=== PATIENT | female | born 1955 | race Caucasian/White ===

== ENCOUNTER 2017-05-20 16:46 | Emergency (ER) | payer OTHER ==
--- NOTE | 2017-05-20 18:17 | EDPHY ---
H & P Time Seen by Provider: 05/20/17 17:44 HPI/ROS: CHIEF COMPLAINT: Acute left medial knee pain from ski HISTORY OF PRESENT ILLNESS: 61-year-old female arrives via private vehicle complaining of acute left knee pain after she was skiing at [place] today, fell , the tail of her ski impacted her left medial knee and she felt a "tear". She is unable to bear weight. Has reproducible pain with movement, palpation. No fall from a significant height. PHYSICAL EXAM (Prior to examination, patient consented to physical exam, hands were washed and my usual and customary physical exam procedures followed) 1) GENERAL: Well-developed, well-nourished, alert and oriented. Appears to be in no acute distress. 2) HEAD: Normocephalic 3) HEENT: Pupils equal, round, reactive to light bilaterally. 4) LUNGS: Breathing comfortably. 5) MUSCULOSKELETAL: Exam of the left knee shows ecchymosis left medial knee with associated tenderness. Reproducible pain with range of motion. No gross instability . Compartments are soft. 6) SKIN: Intact 7) VASCULAR: DP,PT pulses and cap refill present and brisk distally DIFFERENTIAL DIAGNOSIS: in no particular order including but not limited to fracture, sprain, compartment syndrome, septic arthritis, DVT Procedure: Crutches indications for crutch use discussed with patient. Patient fitted for crutches by ER staff. Observed ambulating with crutches. I think the patient has the capacity to safely use crutches. Usual and customary crutch walking precautions provided Procedure: Splint A knee immobilizer splint was applied by ER radio frequency technician. After application of the splint I returned and re-examined the patient. The splint was adequately immobilizing the joint and distal to the splint the patient's circulation and sensation were intact. Patient shows no signs of compartment syndrome. Was given orthopedic precautions. Smoking Status: Never smoked Constitutional: Initial Vital Signs Temperature (C) 36.8 C 05/20/17 16:51 Heart Rate 67 05/20/17 16:51 Respiratory Rate 20 05/20/17 16:51 Blood Pressure 143/83 H 05/20/17 16:51 O2 Sat (%) 95 05/20/17 16:51 O2 Delivery Mode Room Air Allergies/Adverse Reactions: No Known Allergies Allergy (Verified 05/20/17 16:50) Home Medications: Medication Instructions Recorded DIAZEPAM 05/20/17 Martha 5/325 (*) 05/20/17 morphINE IR 05/20/17 MDM/Departure - MDM Imaging Results: Imaging Impressions Knee X-Ray 05/20/17 17:42 Impression: Moderate joint effusion with an avulsion fracture along the medial surface of the femoral condyle. Other fractures are better seen on comparison CT knee obtained on the same date. Recommend follow-up MRI to better evaluate. Extremity CT 05/20/17 18:43 Impression: 1. Avulsion fracture at the proximal attachment of the medial collateral ligament. 2. Additional fractures along the posterolateral tibia and the proximal fibula suggests a posterolateral corner injury. 3. Suspect anterior cruciate ligament injury near its proximal attachment. 4. Moderately-sized joint effusion. 5. Recommend follow-up MRI to better evaluate these injuries. Dr. Harper discussed these findings by telephone with Aleksandr Pizano on 05/20/2017 at 19:07 hours. Images reviewed myself ED Course/Re-evaluation: The patient was re-evaluated with serial examinations. CT imaging was performed performed to better evaluate possible fracture seen on x-rays. Discussed results jof the CT imaging with patient. Discussed limitations CT imaging. At this time I do not think that emergent orthopedic consultation is indicated and I recommended close follow-up with orthopedics on an outpatient as she will more than likely necessitate MRI. She feels comfortable with this plan. No evidence of compartment syndrome at initial or on follow-up evaluation. She is neurovascular intact. I have offered analgesia both in the ER and for discharge however she declines noting that she has a pain contract with a metal painter. Given usual customary orthopedic precautions and instructions. Care of patient under supervision of secondary supervising physician Dr Kingston. - Depart Disposition: Home, Routine, Self-Care Clinical Impression: Left medial knee pain Skiing accident Qualifiers: Encounter type: initial encounter Qualified Code(s): V00.328A - Other snow-ski accident, initial encounter Condition: Good Instructions: Knee Sprain (ED) Additional Instructions: Return to the ER immediately if you experience discoloration, have worsening pain, numbness, tingling, or any other symptoms that concern you. If you received x-rays in the emergency department today, be advised, that ligamentous , tendon, muscular, and other non-bony injury cannot be fully ruled out. Try to keep your affected extremity elevated above the level of your chest, and keep cold packs on the affected area, for the next 48 hours. Referrals: Pineda Montoya MD [Medical Doctor] - As per Instructions
[2017-05-20 19:43] VITALS: BP 124/94
== END 2017-05-20 19:43 | disposition home or self-care (01) ==
DX: S89.92XA Unspecified injury of left lower leg, initial encounter (principal); V00.328A Other snow-ski accident, initial encounter; Y92.89 Other specified places as the place of occurrence of the external cause; Y99.8 Other external cause status; Y93.23 Activity, snow (alpine) (downhill) skiing, snowboarding, sledding, tobogganing and snow tubing

== ENCOUNTER → 2017-05-28 | Outpatient (CLI) | payer OTHER | LOC: FIMAGING 17:36 | PROVIDERS: ATTEND Family Medicine | DX: S83.512A Sprain of anterior cruciate ligament of left knee, initial encounter (principal); S83.242A Other tear of medial meniscus, current injury, left knee, initial encounter ==

== ENCOUNTER → 2017-12-12 | Outpatient (CLI) | payer OTHER | LOC: CIMAGING 08:14 | PROVIDERS: ATTEND Family Medicine | DX: Z12.31 Encounter for screening mammogram for malignant neoplasm of breast (principal) ==